=== PATIENT | male | born 1985 | race Caucasian/White ===

== ENCOUNTER 2019-01-23 14:44 | Emergency (ER) | payer BC ==
[~2019-01-23] VITALS: Ht 190.5 cm; Wt 90.7 kg
[2019-01-23 16:15] LABS: Influenza A Positive (NEGATIVE); Influenza B Negative (NEGATIVE)
[2019-01-23] MEDS ORDERED: ONDA4ODT MM (16:43)
[2019-01-23] MEDS ORDERED: BENZ100A PO (16:43)
== END 2019-01-23 17:00 | disposition home or self-care (01) ==
LOC: ER 14:44
PROVIDERS: Physician Assistant
DX: J10.1 Influenza due to other identified influenza virus with other respiratory manifestations (principal); F17.200 Nicotine dependence, unspecified, uncomplicated
CPT/HCPCS: 87804; 99283

== ENCOUNTER 2023-05-30 21:59 | Emergency (ER) | payer OTHER ==
[~2023-05-30] VITALS: Ht 190.5 cm; Wt 137.0 kg
[~2023-05-30 21:59] MED LIST: BENZ100A PO; ONDA4ODT MM
[2023-05-30 22:32] VITALS: BP 168/99
== END 2023-05-31 01:01 | disposition home or self-care (01) ==
LOC: ER 21:59
DX: S91.331A Puncture wound without foreign body, right foot, initial encounter (principal); W22.8XXA Striking against or struck by other objects, initial encounter; F17.200 Nicotine dependence, unspecified, uncomplicated
CPT/HCPCS: 73620; 90715; 99283-25